=== PATIENT | female | born 1995 | race Caucasian/White ===

== ENCOUNTER 2019-01-15 12:32 | Emergency (ER) | payer BC, OTHER ==
[~2019-01-15] VITALS: Ht 170.2 cm; Wt 52.2 kg
[2019-01-15 12:50] VITALS: BP 122/79
--- NOTE | 2019-01-15 12:51 | NUR ---
ED Nurse Note: pt walked in due to laceration in between her 5th and 4th digit on the left hand. pt stated she using knife to cut anson and then she accidently cut herself. pt the pain is mild, she is afraid on looking at the wound. seen by afsaneh cohen. will continue to monitor.
--- NOTE | 2019-01-15 12:59 | Emergency Room Report ---
History of Present Illness General Chief Complaint: Laceration Source: Patient Present Illness HPI 23-year-old female with no significant past medical history here complaining of pain and bleeding from the left hand cutter apprentice digit that started today after cutting herself with a knife. Patient is rating her pain 5 out of 10 without radiation has full sensation and able to move her finger around. Patient is up- to-date with her tetanus shot. Denies all other injuries, and denies taking any medication. Denies chest pain, shortness of breath, palpitation, abdominal pain, any bleeding disorder. Allergies: Coded Allergies: No Known Allergies (Unverified , 01/15/19) Patient History Past Medical History: see triage record Past Surgical History: unable to obtain Pertinent Family History: none Last Menstrual Period: 12/26/18 Now: No Immunizations: UTD Reviewed Nursing Documentation: PMH: Agreed; PSxH: Agreed Nursing Documentation-PMH Past Medical History: No Stated History Review of Systems All Other Systems: negative except mentioned in HPI Physical Exam Vital Signs Date Time Temp Pulse Resp B/P (MAP) Pulse Ox O2 Delivery O2 Flow Rate FiO2 01/15/19 12:36 98.2 100 19 122/79 (93) 99 Room Air Sp02 EP Interpretation: reviewed, normal General Appearance: normal inspection, well appearing, no apparent distress Head: normocephalic, atraumatic Eyes: bilateral eye normal inspection, bilateral eye PERRL ENT: normal ENT inspection, hearing grossly normal, normal pharynx Neck: normal inspection, full range of motion, supple Respiratory: normal inspection, chest non-tender, no rhonchi, no wheezing Cardiovascular #1: normal inspection, normal peripheral pulses, regular rate, rhythm, no edema, no murmur Cardiovascular #2: 2+ radial (R), 2+ radial (L) Gastrointestinal: normal inspection, non tender, soft Genitourinary: no CVA tenderness Musculoskeletal: back normal, digits/nails normal, gait/station normal Neurologic: normal inspection, alert, oriented x3 Psychiatric: normal inspection, judgement/insight normal Skin: other - superficial lac left fifth finger Lymphatic: normal inspection, no adenopathy, axilla node tender (R) Procedures Laceration/Wound Repair Laceration/Wound Repair : Consent: Verbal Wound Location: upper extremity Wound's Depth, Shape: superficial Wound Explored: clean Betadine Prep?: Yes Wound Repaired With: Steri-strips, Dermabond Layer Closure?: Yes Sterile Dressing Applied?: Yes Splint Applied?: No Sling Applied?: No Patient Tolerated: Well Complications: None Medical Decision Making PA Attestation All my diagnosis and treatment plans were reviewed ad discussed with my supervising physician Dr. Solorio Diagnostic Impression: Primary Impression: Laceration of finger ER Course 23-year-old female with no significant past medical history here complaining of pain and bleeding from the left hand cutter apprentice digit that started today after cutting herself with a knife. Patient is rating her pain 5 out of 10 without radiation has full sensation and able to move her finger around. Patient is up- to-date with her tetanus shot. Denies all other injuries, and denies taking any medication. Denies chest pain, shortness of breath, palpitation, abdominal pain, any bleeding disorder. Ddx considered but are not limited to : Superficial laceration, deep laceration , tendon involvement with laceration, laceration with foreign body Vital signs: are WNL, pt. is afebrile H&PE are most consistent with: Superficial laceration ORDERS: X-ray of finger, ibuprofen, Bactroban ED INTERVENTIONS: Laceration repair DISCHARGE: At this time pt. is stable for d/c to home. Will provide printed patient care instructions, and any necessary prescriptions. Care plan and follow up instructions have been discussed with the patient prior to discharge. Other X-Ray Diagnostic Results Other X-Ray Diagnostic Results : X-Ray ordered: finger # of Views/Limited Vs Complete: 2 View Indication: Pain EP Interpretation: Yes PA Xray: Interpretation reviewed, by supervising MD, and agrees with findings. Interpretation: no dislocation, no soft tissue swelling, no fractures, other - no FB Impression: No acute disease Electronically Signed by: heriberto nickerson PA-C Last Vital Signs Date Time Temp Pulse Resp B/P (MAP) Pulse Ox O2 Delivery O2 Flow Rate FiO2 01/15/19 12:36 98.2 100 19 122/79 (93) 99 Room Air Disposition: HOME, SELF-CARE Condition: Stable Scripts Mupirocin (MUPIROCIN) 15 Gm Cream..g. 1 APPLIC TOPIC THREE TIMES A DAY, #15 GM Prov: Heriberto Mei 01/15/19 Ibuprofen* (MOTRIN*) 600 Mg Tablet 600 MG ORAL Q8H PRN for For Pain, #30 TAB 0 Refills Prov: Heriberto Mei 01/15/19 Patient Instructions: Laceration Care, Adult Heriberto Mei Jan 15, 2019 12:59
--- NOTE | 2019-01-15 13:01 | NUR ---
ED Nurse Note: xray on bedside
[2019-01-15] MEDS ORDERED: IBUPROFEN600 MG ORAL (13:18)
[2019-01-15] MEDS ORDERED: MUPIROCIN15 GM TOPIC (13:18)
[2019-01-15 13:21] VITALS: BP 122/79
--- NOTE | 2019-01-15 13:21 | NUR ---
ER DISCHARGE NOTE: Patient is cleared to be discharged per ERMD, pt is aox4, on room air, with stable vital signs. pt was given dc and prescription instructions, pt was able to verbalize understanding, pt id band removed without complications. pt is able to ambulate with steady gait. pt took all belongings.
--- NOTE | 2019-01-15 15:15 | Diagnostic Imaging Report ---
Indication: Pain, laceration Technique: 3 views of the left fifth finger Comparison: none Findings: Questionable anterolateral soft tissue defect is seen superficial to the proximal phalanx. No soft tissue gas or radiopaque foreign body demonstrated. No definite bony disruption. Impression: Questionable soft tissue defect, if real could relate to stated clinical history of laceration No acute process or evidence of radiopaque foreign body
== END 2019-01-15 13:21 | disposition home or self-care (01) ==
LOC: EMR 12:45
DX: S61.217A Laceration without foreign body of left little finger without damage to nail, initial encounter (principal); W26.0XXA Contact with knife, initial encounter; Y92.9 Unspecified place or not applicable
CPT/HCPCS: 99283